=== PATIENT | male | born 1995 | race Caucasian/White ===

== ENCOUNTER 2017-04-12 08:36 | Emergency (ER) | payer MEDICAID, OTHER ==
[~2017-04-12] VITALS: Ht 180.3 cm; Wt 64.4 kg
[2017-04-12 08:39] VITALS: BP 124/76
[2017-04-12] MEDS ORDERED: IBUPROFEN 200 MG TABLET ONE ×2 (09:51→09:55)
[2017-04-12] MEDS ORDERED: IBUPROFEN 200 MG TABLET PO ONE (10:00)
== END 2017-04-12 11:14 | disposition home or self-care (01) ==
LOC: ED 09:47
DX: S20.211A Contusion of right front wall of thorax, initial encounter (principal); S40.012A Contusion of left shoulder, initial encounter; V43.52XA Car driver injured in collision with other type car in traffic accident, initial encounter; Y93.89 Activity, other specified; Y92.89 Other specified places as the place of occurrence of the external cause; Y99.8 Other external cause status
CPT/HCPCS: 71046; 99284